=== PATIENT | male | born 1940 | race Caucasian/White ===

== ENCOUNTER 2022-12-20 06:50 | Inpatient (IN) | payer MEDICARE, BC ==
[~2022-12-20] VITALS: Ht 175.3 cm; Wt 59.0 kg
[2022-12-20] MEDS ORDERED: dextrose ORAL solution 15 GM/59 ML bottle PO STA (07:16)
--- NOTE | 2022-12-20 07:17 | NUR ---
Reported 34mg/dl bg to Dr. Armando, new order received.
[2022-12-20] MEDS ORDERED: DEXTROSE 15 GM of carb/4 tabs (each vial/BOTTLE has 4 tablets) PO STA (07:25)
--- NOTE | 2022-12-20 07:27 | NUR ---
4 oz OJ administered while waiting on oral glucose
--- NOTE | 2022-12-20 07:32 | NUR ---
MD ordered to hold glucose tablet/shot and give apple juice(15g) instead.Primary RN and spouse a bedside.
[2022-12-20 07:48] LABS: BASOPHILS # (AUTO) 0.1 X10'3 (0-0.2); BASOPHILS % (AUTO) 0.6 % (0-1); EOSINOPHILS % (AUTO) 0.3 % (0-6); HEMATOCRIT 31.8 % (42.0-52.0); HEMOGLOBIN 10.6 g/dl (14.0-17.9); LYMPHOCYTES # (AUTO) 0.9 X10'3 (1.1-4.8); LYMPHOCYTES % (AUTO) 9.2 % (21-51); MEAN CORPUSCULAR HEMOGLOBIN 29.8 PG (27.0-31.0); MEAN CORPUSCULAR HGB CONC 33.3 g/dL (33.0-36.5); MEAN CORPUSCULAR VOLUME 89.4 FL (78-98); MEAN PLATELET VOLUME 7.9 FL (7.4-10.4); MONOCYTES # (AUTO) 0.7 X10'3 (0-0.9); MONOCYTES % (AUTO) 7.5 % (2-12); NEUTROPHILS # (AUTO) 7.9 X10'3 (1.8-7.7); NEUTROPHILS % (AUTO) 82.4 % (42-75); PLATELET COUNT 313 X10'3 (140-440); RED BLOOD COUNT 3.56 X10'6 (4.70-6.10); RED CELL DISTRIBUTION WIDTH 16.1 % (11.5-14.5); WHITE BLOOD COUNT 9.5 X10'3 (4.5-11.0)
--- NOTE | 2022-12-20 07:56 | NUR ---
blood sugar 42 mg/dl
--- NOTE | 2022-12-20 08:03 | NUR ---
x2 apple juice given and 15 g of glucose tabs given
[2022-12-20] MEDS: normal saline 500ml IV soln 500 ML IV SCH ×5 (08:04→15:40)
[2022-12-20] MEDS ORDERED: octreotide 100mcg/1 ml ampule SQ ONE (08:10)
--- NOTE | 2022-12-20 08:11 | NUR ---
Dr. Angeles came to see pt. pt to be started on dextrose and IV fluids, blood sugar checks q 30 minutes, octreotide sub cu, and wants another EKG
--- NOTE | 2022-12-20 08:24 | NUR ---
BLOOD SUGAR 66 MG/DL
[2022-12-20] MEDS: Dextrose 10%-water IV solution 1,000 ML IV SCH ×2 (08:49→18:10)
[2022-12-20 09:00] LABS: ALANINE AMINOTRANSFERASE 85 U/L (12-78); ALBUMIN/GLOBULIN RATIO 0.4 (1.1-1.5); ALKALINE PHOSPHATASE 261 IU/L (46-116); ANION GAP 8 (8-16); ASPARTATE AMINO TRANSFERASE 104 U/L (10-37); BILIRUBIN,TOTAL 0.5 MG/DL (0.1-1.0); BLOOD UREA NITROGEN 36 MG/DL (7-18); BUN/CREATININE RATIO 23.7 (5.4-32.0); CALCIUM 9.3 MG/DL (8.5-10.1); CHLORIDE 98 MMOL/L (99-107); CREATININE 1.52 MG/DL (0.60-1.10); GLUCOSE 123 MG/DL (70-104); LIPASE 137 U/L (73-393); MAGNESIUM 1.8 MG/DL (1.5-2.4); POTASSIUM 3.2 MMOL/L (3.5-5.1); SODIUM 137 MMOL/L (135-145); TOTAL PROTEIN 7.5 G/DL (6.4-8.2); eGFR 44 ML/MIN
--- NOTE | 2022-12-20 09:03 | NUR ---
blood sugar 92 mg/dl . repeat ekg complety Addendum: 12/20/22 at 0904 by DENTON ekg complete
[2022-12-20] MEDS ORDERED: POTASSIUM BICARB 20meq eff tab 20 MEQ TABLET.EFF PO ONE (09:10)
[2022-12-20] MEDS ORDERED: magnesium 2GM in 50ml NS 50 ML IV ONE (09:10)
--- NOTE | 2022-12-20 09:37 | NUR ---
blood sugar 163 mg/dl
[2022-12-20] MEDS ORDERED: acetaminophen 325mg tablet PO PRN (10:55)
[2022-12-20] MEDS ORDERED: ondansetron/PF 4mg/2ml inj IV PRN (10:55)
[2022-12-20] MEDS ORDERED: magnesium 4gm in 100ml NS 100 ML IV PRN (10:55)
[2022-12-20] MEDS: normal saline 1000ml 1,000 ML IV SCH (10:55)
[2022-12-20] MEDS ORDERED: magnesium Cl slow-release 64mg tablet PO PRN (10:55)
[2022-12-20] MEDS ORDERED: morphine 2 MG/ML inj. syringe IV PRN (10:55)
[2022-12-20] MEDS ORDERED: potassium Cl 20 mEq SR tablet PO PRN (10:55)
[2022-12-20] MEDS ORDERED: potassium Cl 40MEQ/1/2NS 520ml 520 ML IV PRN (10:55)
--- NOTE | 2022-12-20 10:57 | NUR ---
BLOOD SUGAR 255 MG/DL
--- NOTE | 2022-12-20 12:13 | NUR ---
BLOOD SUGAR 334 MG/DL
[2022-12-20 12:33] LABS: CLARITY,URINE CLEAR (Clear); COLOR,URINE YELLOW (Yellow); GLUCOSE, URINE >=1000 mg/dl (Neg); KETONES,URINE NEGATIVE (Neg); LEUKOCYTE ESTERASE ,URINE NEGATIVE (Neg); NITRITES, URINE NEGATIVE (Neg); OCCULT BLOOD,URINE MODERATE (Neg); PROTEIN,URINE NEGATIVE (Neg); UROBILINOGEN,URINE 0.2 E.U/dL (0.2-1.0)
[2022-12-20 12:37] LABS: UA COLLECTION TYPE STRAIGHT CATH
[2022-12-20 12:41] LABS: BACTERIA,URINE FEW /HPF (Neg); MUCUS STRANDS NONE SEEN /LPF (Neg); RENAL CELLS, URINE FEW /HPF; SQUAMOUS EPITHELIAL CELL,UR NONE SEEN /LPF (FEW); WBC CLUMPS,URINE MODERATE /HPF (NEGATIVE); WBC,URINE 20-30 /HPF (0-4)
[2022-12-20] MEDS: CefTRIAXone/D5W-Rocephin 1gm 50 ML IV SCH (14:31)
--- NOTE | 2022-12-20 14:38 | NUR ---
BLOOD SUGAR 404 MG/DL
--- NOTE | 2022-12-20 15:40 | NUR ---
pt cleaned and changed. pt repositioned in bed.
[2022-12-20] MEDS ORDERED: ATOR-2 PO (16:37)
[2022-12-20] MEDS ORDERED: GLIM4TAB7 PO (16:37)
[2022-12-20] MEDS ORDERED: MULT-1085 PO (16:37)
[2022-12-20] MEDS ORDERED: METO-411 PO (16:37)
[2022-12-20] MEDS ORDERED: CETI-194 PO (16:37)
[2022-12-20] MEDS ORDERED: DOCU-148 PO (16:37)
[2022-12-20] MEDS ORDERED: SITA100T11 PO (16:37)
[2022-12-20] MEDS ORDERED: ADAL40PE5 SQ (16:37)
[2022-12-20] MEDS ORDERED: FLO0.4C PO (16:37)
[2022-12-20] MEDS ORDERED: FINA5TAB11 PO (16:37)
[2022-12-20] MEDS ORDERED: METF-438 PO (16:37)
[2022-12-20] MEDS ORDERED: EMPA25TA PO (16:37)
[2022-12-20] MEDS ORDERED: FURO40TA4 PO (16:37)
[2022-12-20] MEDS ORDERED: CHOL100046 PO (16:39)
[2022-12-20] MEDS ORDERED: POLY17PO10 PO (16:41)
--- NOTE | 2022-12-20 16:59 | NUR ---
pt given a urinal. pt able to turn himself from side to side . slight redness to sacrum
--- NOTE | 2022-12-20 16:59 | NUR ---
blood sugar 443 mg/dl
--- NOTE | 2022-12-20 18:46 | NUR ---
blood sugar 473 mg/dl
[2022-12-20] MEDS: K and/or MAG REPLACEMENT MC SCH (20:00)
[2022-12-20 22:00] VITALS: BP 120/75
[2022-12-21] MEDS: normal saline 1000ml 1,000 ML IV SCH ×3 (00:35→17:08)
[2022-12-21 02:00] VITALS: BP 122/56
[2022-12-21] MEDS: Dextrose 10%-water IV solution 1,000 ML IV SCH (04:10)
--- NOTE | 2022-12-21 06:20 | NUR ---
Patient in room PCU 3017. I have received report from Alex and had the opportunity to ask questions and assume patient care.
[2022-12-21 06:53] VITALS: BP 98/55
[2022-12-21] MEDS: K and/or MAG REPLACEMENT MC SCH ×2 (07:47→19:00)
[2022-12-21] MEDS: CefTRIAXone/D5W-Rocephin 1gm 50 ML IV SCH (07:56)
[2022-12-21 08:06] LABS: BASOPHILS % (AUTO) 0.6 % (0-1); EOSINOPHILS # (AUTO) 0.1 X10'3 (0-0.9); EOSINOPHILS % (AUTO) 1.4 % (0-6); HEMATOCRIT 27.7 % (42.0-52.0); HEMOGLOBIN 9.2 g/dl (14.0-17.9); LYMPHOCYTES # (AUTO) 0.9 X10'3 (1.1-4.8); LYMPHOCYTES % (AUTO) 11.8 % (21-51); MEAN CORPUSCULAR HEMOGLOBIN 30.1 PG (27.0-31.0); MEAN CORPUSCULAR HGB CONC 33.2 g/dL (33.0-36.5); MEAN CORPUSCULAR VOLUME 90.4 FL (78-98); MEAN PLATELET VOLUME 7.4 FL (7.4-10.4); MONOCYTES # (AUTO) 0.6 X10'3 (0-0.9); MONOCYTES % (AUTO) 8.6 % (2-12); NEUTROPHILS # (AUTO) 5.8 X10'3 (1.8-7.7); NEUTROPHILS % (AUTO) 77.6 % (42-75); PLATELET COUNT 311 X10'3 (140-440); RED BLOOD COUNT 3.07 X10'6 (4.70-6.10); RED CELL DISTRIBUTION WIDTH 15.8 % (11.5-14.5); WHITE BLOOD COUNT 7.4 X10'3 (4.5-11.0)
[2022-12-21 08:41] LABS: ALBUMIN 1.6 G/DL (3.4-5.0); ANION GAP 6 (8-16); BLOOD UREA NITROGEN 32 MG/DL (7-18); BUN/CREATININE RATIO 22.4 (5.4-32.0); CALCIUM 8.6 MG/DL (8.5-10.1); CHLORIDE 101 MMOL/L (99-107); CREATININE 1.43 MG/DL (0.60-1.10); GLUCOSE 236 MG/DL (70-104); MAGNESIUM 2.3 MG/DL (1.5-2.4); POTASSIUM 3.2 MMOL/L (3.5-5.1); SODIUM 138 MMOL/L (135-145); eGFR 47 ML/MIN
[2022-12-21] MEDS ORDERED: dextrose 50%-water 50ml dispensing syringe IV PRN ×2 (09:00)
[2022-12-21] MEDS ORDERED: MESSAGE TO PHARMACY PO ONE (09:00)
[2022-12-21] MEDS ORDERED: glucagon, human recombinant 1mg kit SUBCUT PRN (09:00)
[2022-12-21] MEDS ORDERED: DEXTROSE 15 GM of carb/4 tabs (each vial/BOTTLE has 4 tablets) PO PRN ×2 (09:00)
[2022-12-21] MEDS ORDERED: insulin Lispro (HumaLOG) vial - multi-dose SQ SCH (09:00)
--- NOTE | 2022-12-21 09:53 | NUR ---
DM consult: Per EMR pt with T2DM, well controlled for geriatric age with A1c 7.5%. DM education not warranted at this time. Noted pt with a low BMI of 19.2 however current wt isn't scaled. No scaled wt hx in EMR. Pt denied wt loss or decreased appetite per malnutrition risk screen with RN. Pt currently eating well, documented with average 75% PO intake of first meal which will meet patient's estimated nutrient needs for IBW should pt continue with this PO intake. Pt with no documented significant decrease in muscle strength or edema. Pt currently lacks a minimum of two criteria for malnutrition. Will continue to follow and further monitor malnutrition criteria. Addendum: 12/21/22 at [address] Amended: Links added.
[2022-12-21] MEDS: potassium Cl 20 mEq SR tablet PO PRN ×2 (10:54→15:22)
[2022-12-21 11:00] VITALS: BP 119/78
--- NOTE | 2022-12-21 12:22 | NUR ---
Re: Chris in [id number], pt's spouse brought home med eye drops, I have questions about the insulin regime, please call when convenient Thank you Kenia
--- NOTE | 2022-12-21 12:25 | NUR ---
Spoke with MD, okay to use patient's eye drops - will send to the pharmacy. Patient asked about Humira that was missed this past . MD advised to speak with pharmacy about the ability to supply/give that medication. Advised MD regarding patient's blood sugars. Patient arrived to the ED with a very low blood sugar of about 34. Patient's blood sugars today were 233 and 291. Per MD we will be holding off on the insulin for now. Will continue to monitor.
[2022-12-21 18:00] VITALS: BP 135/84
--- NOTE | 2022-12-21 18:10 | NUR ---
Problems reprioritized. Patient report given, questions answered & plan of care reviewed with
[2022-12-21] MEDS ORDERED: insulin glargine (Lantus) pen - multi-dose SQ SCH (21:00)
[2022-12-21] MEDS ORDERED: finasteride 5mg tablet PO SCH (21:00)
--- NOTE | 2022-12-21 21:18 | NUR ---
MD Kaur notified by telephone that patient had a blood sugar of 296. ordered that lantus not be given and that one unit of humalog insulin be given for the night time coverage.
[2022-12-21 23:03] VITALS: BP 124/71
[2022-12-22 02:08] VITALS: BP 146/78
[2022-12-22] MEDS: potassium Cl 20 mEq SR tablet PO PRN (04:31)
[2022-12-22] MEDS: normal saline 1000ml 1,000 ML IV SCH (05:19)
[2022-12-22 07:24] LABS: BASOPHILS % (AUTO) 0.4 % (0-1); EOSINOPHILS # (AUTO) 0.1 X10'3 (0-0.9); EOSINOPHILS % (AUTO) 1.4 % (0-6); HEMATOCRIT 30.6 % (42.0-52.0); HEMOGLOBIN 10.1 g/dl (14.0-17.9); LYMPHOCYTES # (AUTO) 0.7 X10'3 (1.1-4.8); LYMPHOCYTES % (AUTO) 10.1 % (21-51); MEAN CORPUSCULAR HEMOGLOBIN 29.7 PG (27.0-31.0); MEAN CORPUSCULAR HGB CONC 32.8 g/dL (33.0-36.5); MEAN CORPUSCULAR VOLUME 90.3 FL (78-98); MEAN PLATELET VOLUME 7.1 FL (7.4-10.4); MONOCYTES # (AUTO) 0.5 X10'3 (0-0.9); MONOCYTES % (AUTO) 7.1 % (2-12); NEUTROPHILS # (AUTO) 5.9 X10'3 (1.8-7.7); PLATELET COUNT 322 X10'3 (140-440); RED BLOOD COUNT 3.39 X10'6 (4.70-6.10); WHITE BLOOD COUNT 7.2 X10'3 (4.5-11.0)
[2022-12-22 07:36] LABS: ALBUMIN 1.6 G/DL (3.4-5.0); ANION GAP 10 (8-16); BLOOD UREA NITROGEN 22 MG/DL (7-18); BUN/CREATININE RATIO 21.8 (5.4-32.0); CALCIUM 8.8 MG/DL (8.5-10.1); CHLORIDE 105 MMOL/L (99-107); CREATININE 1.01 MG/DL (0.60-1.10); GLUCOSE 168 MG/DL (70-104); POTASSIUM 3.9 MMOL/L (3.5-5.1); SODIUM 142 MMOL/L (135-145); TOTAL CARBON DIOXIDE 26.6 MMOL/L (24-32); eGFR 71 ML/MIN
[2022-12-22] MEDS ORDERED: tamsulosin 0.4mg capsule PO SCH (08:00)
[2022-12-22] MEDS: K and/or MAG REPLACEMENT MC SCH (08:00)
[2022-12-22] MEDS: CefTRIAXone/D5W-Rocephin 1gm 50 ML IV SCH (08:18)
[2022-12-22 09:32] LABS: C-PEPTIDE, SERUM 7.4 ng/mL (1.1-4.4); INSULIN 12.4 uIU/mL (2.6-24.9)
[2022-12-22] MEDS ORDERED: FURO40TA4 PO (09:49)
--- NOTE | 2022-12-22 11:38 | NUR ---
Pt stable for discharge per Dr. Adamson. All discharge instructions reviewed with patient and all questions answered, pt verbalized understanding. No new medications ordered. PIV discontinued, cannula intact. Tele discontinued. All belongings collected and sent with patient. Wheeled to lobby via nursing staff and picked up by spouse.
== END 2022-12-22 10:55 | disposition home health service (06) | DRG 637 ==
LOC: ER 06:51 → ED HOLD 10:57 → EDBEDREQ 17:03 → PCU 3S 19:25
PROVIDERS: ADMIT Internal Medicine; ATTEND Internal Medicine
DX: E11.649 Type 2 diabetes mellitus with hypoglycemia without coma (principal); E43 Unspecified severe protein-calorie malnutrition; G93.41 Metabolic encephalopathy; Z68.1 Body mass index [BMI] 19.9 or less, adult; N39.0 Urinary tract infection, site not specified; N17.9 Acute kidney failure, unspecified; E87.6 Hypokalemia; E86.0 Dehydration; R62.7 Adult failure to thrive; D64.9 Anemia, unspecified; E78.5 Hyperlipidemia, unspecified; R15.9 Full incontinence of feces; Z79.84 Long term (current) use of oral hypoglycemic drugs; Z79.899 Other long term (current) drug therapy
CPT/HCPCS: 36415; 80048; 80053; 81001; 82948; 83036; 83525; 83690; 83735; 83880; 84484; 84681; 85025; 87081; 87088; 96365; 96372; 97116; 97162; 97530; 99285; A6213; A6250; G0378; J0696; J1815; J2354; J3475; J3490; J7030; J7040